=== PATIENT | male | born 1970 | race Two or more races ===

== ENCOUNTER 2019-07-06 18:40 | Emergency (ER) | payer OTHER ==
[~2019-07-06] VITALS: Ht 190.5 cm; Wt 96.3 kg
[2019-07-06] MEDS ORDERED: ONDANSETRON 2MG/ML, 2ML ONE (18:44)
[2019-07-06] MEDS ORDERED: MORPHINE SULFATE 4 MG/ML, 1ML ONE ×2 (18:44→19:00)
[2019-07-06] MEDS: MORPHINE SULFATE 4 MG/ML, 1ML IV PRN ×2 (18:50→19:47)
[2019-07-06] MEDS ORDERED: ONDANSETRON 2MG/ML, 2ML IVPush ONE (19:00)
[2019-07-06] MEDS ORDERED: SODIUM CHLORIDE FLUSH 10ML SYR IVF ONE (19:00)
[2019-07-06] MEDS ORDERED: CEFAZOLIN 1,000 MG IM ONE (19:00)
[2019-07-06] MEDS ORDERED: DIPH,PERTUSS(ACELL),TET VAC/PF 0.5 ML IM-VACC ONE ×2 (19:00→19:04)
[2019-07-06] MEDS ORDERED: CEFAZOLIN 1,000 MG ONE (19:04)
--- NOTE | 2019-07-06 19:24 | NUR ---
last oral intake was milk at 1600 07/06/19. pt resting on [place]. pt explained poc by dr galaviz. pt wishing to speak with the hand surgeon. dr galaviz to pass on pt wishes to hand surgeon
[2019-07-06] MEDS ORDERED: LIDOCAINE-MPF 1%, 5ML ONE (19:45)
[2019-07-06 21:44] VITALS: BP 132/80
== END 2019-07-06 21:51 | disposition home or self-care (01) ==
LOC: ED 21:26
DX: S62.613A Displaced fracture of proximal phalanx of left middle finger, initial encounter for closed fracture (principal); S61.223A Laceration with foreign body of left middle finger without damage to nail, initial encounter; I10 Essential (primary) hypertension; E11.9 Type 2 diabetes mellitus without complications; Z89.022 Acquired absence of left finger(s); W26.0XXA Contact with knife, initial encounter; Y93.89 Activity, other specified; Y92.511 Restaurant or cafe as the place of occurrence of the external cause; Y99.8 Other external cause status
CPT/HCPCS: 12042; 26770; 73130; 90471; 90715; 96372; 96374; 96375; 96376; 99284; J0690; J2270; J2405